=== PATIENT | female | born 2005 | race African-American/Black ===

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

== ENCOUNTER 2023-04-19 01:44 | Emergency (ER) | payer MEDICAID ==
[~2023-04-19] VITALS: Ht 167.6 cm; Wt 79.5 kg
[~2023-04-19 01:44] MED LIST: IBUP-860 PO
[2023-04-19 01:56] VITALS: BP 122/79; PULSE 74; RESP 16; TEMP 98.4; O2SAT 100
[2023-04-19] MEDS: acetaminophen 325mg tablet PO ONE (02:01)
[2023-04-19] MEDS: ibuprofen tablet 400 MG TABLET PO ONE (02:01)
== END 2023-04-19 02:19 | disposition home or self-care (01) ==
LOC: ER 01:44
DX: T23.171A Burn of first degree of right wrist, initial encounter (principal); Z88.6 Allergy status to analgesic agent; Z79.1 Long term (current) use of non-steroidal anti-inflammatories (NSAID); X12.XXXA Contact with other hot fluids, initial encounter; Y93.89 Activity, other specified; Y92.89 Other specified places as the place of occurrence of the external cause; Y99.8 Other external cause status
CPT/HCPCS: 99283